=== PATIENT | female | born 1940 | race Caucasian/White ===

== ENCOUNTER 2018-05-14 16:34 | Observation (INO) | payer MEDICARE ==
[2018-05-14 17:57] LABS: #Eosinphils 0.1 thou/uL (0.0-0.7); #Lymphocytes 1.7 thou/uL (1.20-3.40); #Monocytes 0.4 thou/uL (0.11-0.59); #Neutrophils 2.2 thou/uL (1.40-6.50); %Basophils 0.6 % (0.0-1.0); %Eosinophils 1.9 % (0.0-10.0); %Lymphocytes 38.5 % (21.0-51.0); %Monocytes 9.4 % (0.0-10.0); %Neutrophils 49.7 % (42.0-75.0); Hemoglobin 6.4 g/dL (12.0-16.0); Mean Corpuscular HGB CONC 34.1 g/dL (32.0-36.0); Mean Corpuscular Hemoglobin 30.4 pg (27.0-31.0); Mean Corpuscular Volume 89.2 fL (78.0-98.0); Mean Platelet Volume 7.7 fL (7.4-10.4); Platelet Count 251 thou/uL (130-400); RBC Distribution Width 15.9 % (11.5-14.5); Red Blood Cell (RBC) Count 2.09 mill/uL (4.20-5.40); White Blood Cell (WBC) Count 4.4 thou/uL (4.8-10.8)
[2018-05-14 18:19] LABS: ALT (SGPT) 24 U/L (8-55); AST (SGOT) 59 U/L (5-34); Albumin 3.1 g/dL (3.4-4.8); Alkaline Phosphatase 104 U/L (40-150); Anion Gap 13 mmol/L (10-20); BUN (Urea Nitrogen) 23 mg/dL (9.8-20.1); Bilirubin, Total 3.2 mg/dL (0.2-1.2); Calc. Creatinine Clearance 0 mL/min (70-130); Calcium 8.4 mg/dL (7.8-10.44); Carbon Dioxide 28 mmol/L (23-31); Chloride 102 mmol/L (98-107); Estimated GFR-MDRD 52; Globulin 3.2 g/dL (2.4-3.5); Glucose 134 mg/dL (83-110); Protein, Total 6.3 g/dL (6.0-8.3); Sodium 140 mmol/L (136-145)
[2018-05-14] MEDS ORDERED: Acetaminophen 650 MG Suppository PR PRN (20:13)
[2018-05-14] MEDS ORDERED: Acetaminophen 325 MG TAB PO PRN (20:13)
--- NOTE | 2018-05-14 20:46 | RAD ---
FRadiograph chest 2 views: 05/14/2018 HISTORY: 77-year-old female with dyspnea and anemia. COMPARISON: None available FINDINGS: There is a left pleural effusion occupying approximately 20% volume of the left hemithoracic cavity, with associated consolidation of underlying base of left lower lobe. There is a smaller right pleural effusion. Cardiac size is either enlarged or at upper limits of normal. Mild pulmonary venous congestion. No pn eumothorax. IMPRESSION: 1. Bilateral pleural effusions, left greater than right. 2. Underlying consolidation at base of left lower lobe, either atelectasis or pneumonia. 3. Possible mild congestive heart failure.
[2018-05-14] MEDS ORDERED: Famotidine 20 MG TAB PO SCH (21:00)
--- NOTE | 2018-05-14 21:31 | HP ---
CHIEF COMPLAINT: Weakness. HISTORY OF PRESENT ILLNESS: Ms. Saldaña is a pleasant 77-year-old woman, who is currently admitted to [facility] due to weakness associated with chronic anemia since March 2018, who presents today due to a low hemoglobin today of 6.4 and had a hemoglobin of 8.1 last night. The patient is under the care of Dr. Clinton, supervisor maintenance, and her primary care physician is Dr. Tavarez in [place]. She has been undergoing workup and investigations including colonoscopy and upper endoscopy, both done in March, all of which have been unremarkable. She was most recently placed on steroids. The patient has a followup with Dr. Clinton on Wednesday and states has not yet been determined what is causing her anemia. Of note, the patient was recently diagnosed with a left lower extremity DVT and states due to low hemoglobin, she was not placed on any anticoagulation. She has not been diagnosed with any pulmonary embolus that she is aware of and denies undergoing any procedure such as IVC filter placement. The patient had undergone laboratory studies in the ED and transfusion of 1 unit of packed red blood cells has been requested by Dr. Cervantes. Per the patient, it has not yet been given, but nurse has gone up to medicinal plant picker the unit of blood. REVIEW OF SYSTEMS: The patient states she feels generally fatigued and this has been persisting since March and has had no significant improvement despite being in rehab. She also reports lower leg swelling bilaterally. The patient reports noting bilateral lower extremity edema. She states she does have shortness of breath at baseline, associated with her generalized weakness and fatigue. She denies having any shortness of breath at rest or denies any chest pain. Has not had any fevers, chills, or sweats. No cough or hemoptysis. Denies any abdominal pain or cramping. She has been moving her bowels as normal without any diarrhea or constipation. She has not noted any black-colored stools or bright red blood per rectum, has not noted any hematuria. Denies any dysuria or urinary frequency. Has not experienced any hematemesis. No nausea or vomiting. She reports having a good appetite and denies any weight loss. No headaches or dizziness. The patient denies having any vaginal bleeding or discharge. All other review of systems is negative. PAST MEDICAL HISTORY: 1. Hypertension. 2. Left lower leg DVT. 3. Chronic anemia. 4. Diastolic CHF. 5. GERD without esophagitis. 6. Allergic rhinitis. 7. Hyperbilirubinemia. 8. Generalized weakness. PAST SURGICAL HISTORY: 1. Cholecystectomy with biliary stent placed, due to be removed. 2. Cataract surgery. 3. Appendectomy. 4. Hysterectomy. SOCIAL HISTORY: The patient denies any alcohol use or smoking history. No illicit drug use. ALLERGIES: NO KNOWN DRUG ALLERGIES. CURRENT MEDICATIONS: 1. Cholecalciferol. 2. Flonase. 3. Furosemide. 4. Lisinopril. 5. Metoprolol. 6. Pantoprazole. PHYSICAL EXAMINATION: GENERAL: The patient appears fatigued, generally unwell, very thin and frail. HEENT: Normocephalic and atraumatic. Pupils are equal, round, and reactive to light. Sclerae notable for slight icterus. Oropharynx is clear. NECK: Supple. LUNGS: Clear to auscultation bilaterally without any wheezes, rales, or rhonchi. She did have reduced breath sounds at the bilateral bases. CARDIAC: Regular rate and rhythm. ABDOMEN: Soft, mildly distended, and nontender. No guarding or rigidity. No renal angle tenderness. EXTREMITIES: Notable for +1 pitting edema bilaterally from the feet to the midcalf. NEUROLOGIC: Alert and oriented x3. SKIN: Notable for jaundice. No rash. No pruritus. LABORATORY DATA: White blood count 4.4, hemoglobin 6.4, hematocrit 18.7, and platelets 251. Sodium 140; potassium 3.0; BUN 23; creatinine 1.03; GFR 52, up from previous lab done 1 week ago when it was 47; glucose 134, calcium 8.4; total bilirubin 3.2; AST 59; ALT 24; alkaline phosphatase 104; albumin 3.1; globulin 3.2. IMAGING DATA: None. IMPRESSION AND PLAN: Ms. Saldaña is a very pleasant 77-year-old woman, who is being admitted for management of the followin. Anemia. The patient has been undergoing investigations with Dr. Clinton, supervisor maintenance, since March 2018 with unclear reason for the persisting anemia as per the patient and her . She has had no signs or symptoms of bleeding. She underwent upper and lower endoscopies in March, both of which were unremarkable. We will check the stool for occult blood. Her hemoglobin last night was 8 and dropped suddenly by 2 points. We will continue to monitor H and H and transfuse further if necessary. We will discuss with attending if hematology consult is needed. The patient does have an appointment with Dr. Clinton on Wednesday. 2. Shortness of breath. Potentially associated with symptomatic anemia. However, the patient does have a history of congestive heart failure and bilateral pitting edema. We will check her BNP and obtain a chest x-ray. The patient states she has never undergone an echo. Echo to be done, pending results of chest x-ray and BNP. Otherwise, Day Team to decide if indicated. 3. Hyperbilirubinemia. The patient has a total bilirubin of 3.2. She had undergone a cholecystectomy with biliary stent still in situ. According to the patient, she is awaiting removal. AST 59, ALT 24. We will check coags. Direct bilirubin ordered. We will discuss with attending if liver ultrasound is indicated; however, the patient is asymptomatic without any abdominal pain. We will add on lipase as well. 4. Hypertension. Resume home medications and monitor blood pressure. 5. Gastrointestinal prophylaxis. 6. Deep venous thrombosis prophylaxis. Hold given low HB. The patient has been recently diagnosed with a left lower extremity deep venous thrombosis. At present, it appears no measures have been taken to prevent a pulmonary embolism as such as IVC filter placement. She has remained off anticoagulation. The patient states this is due to her persistently low HB. 7. Full code status. Her surrogate decision maker is her , Jefferson Saldaña. The patient's case to be discussed with Dr. Espinoza for further input and recommendations. Job ID: [id number]
[2018-05-14 23:32] VITALS: BMI 22.3
[2018-05-15 07:00] LABS: #Eosinphils 0.1 thou/uL (0.0-0.7); #Lymphocytes 1.7 thou/uL (1.20-3.40); #Monocytes 0.4 thou/uL (0.11-0.59); #Neutrophils 1.7 thou/uL (1.40-6.50); %Basophils 0.2 % (0.0-1.0); %Eosinophils 3.6 % (0.0-10.0); %Lymphocytes 42.8 % (21.0-51.0); %Monocytes 10.2 % (0.0-10.0); %Neutrophils 43.2 % (42.0-75.0); Hemoglobin 6.6 g/dL (12.0-16.0); Mean Corpuscular HGB CONC 34.6 g/dL (32.0-36.0); Mean Corpuscular Hemoglobin 30.4 pg (27.0-31.0); Mean Platelet Volume 7.7 fL (7.4-10.4); Platelet Count 201 thou/uL (130-400); RBC Distribution Width 15.6 % (11.5-14.5); Red Blood Cell (RBC) Count 2.17 mill/uL (4.20-5.40); White Blood Cell (WBC) Count 3.9 thou/uL (4.8-10.8)
[2018-05-15 07:17] LABS: Anion Gap 10 mmol/L (10-20); BUN (Urea Nitrogen) 19 mg/dL (9.8-20.1); Calc. Creatinine Clearance 45 mL/min (70-130); Calcium 8.3 mg/dL (7.8-10.44); Carbon Dioxide 30 mmol/L (23-31); Chloride 105 mmol/L (98-107); Estimated GFR-MDRD 65; Glucose 110 mg/dL (83-110); Potassium 3.1 mmol/L (3.5-5.1); Sodium 142 mmol/L (136-145)
[2018-05-15] MEDS: Furosemide 40 MG TAB PO SCH (08:10)
[2018-05-15] MEDS: Lisinopril 20 MG TAB PO SCH (08:10)
[2018-05-15] MEDS ORDERED: predniSONE 20 MG TAB SCH (11:15)
[2018-05-15] MEDS ORDERED: predniSONE 20 MG TAB PO SCH (12:00)
--- NOTE | 2018-05-15 17:20 | PDOC.PN ---
- Subjective Encounter Start Date: 05/15/18 Encounter Start Time: 17:18 Patient lying in bed with at bedside. She reports feeling better today, but still with some mild shortness of breath. Dr Clinton ordered 2 additional units of blood. She denies chest pain, palpitations or abdominal pain. - Objective Resuscitation Status - Order Detail: 05/14/18 20:13 Resuscitation Status Routine Co-Sign Provider: Resuscitation Status: FULL: Full Resuscitation Discussed with: Patient and MAR Reviewed: Yes Vital Signs & Weight: Vital Signs (12 hours) Temp Pulse Resp BP Pulse Ox 05/15/18 08:00 98.0 F 81 16 163/80 H 96 Weight Weight 118 lb I&O: 05/14/18 05/15/18 05/16/18 06:59 06:59 06:59 Intake Total 320 1035 Balance 320 1035 Result Diagrams: 05/15/18 06:41 05/15/18 06:41 Radiology Reviewed by me: Yes Phys Exam - Physical Examination Constitutional: NAD HEENT: moist MMs, oral pharynx no lesions Neck: no nodes, supple Respiratory: no wheezing, clear to auscultation bilateral Cardiovascular: RRR, no significant murmur Gastrointestinal: soft, positive bowel sounds Musculoskeletal: pulses present Trace edema Neurological: non-focal, moves all 4 limbs Psychiatric: normal affect, A&O x 3 Skin: no rash, cap refill <2 seconds Dx/Plan (1) Acute on chronic anemia Code(s): D64.9 - ANEMIA, UNSPECIFIED Status: Acute (2) CHF (congestive heart failure) Code(s): I50.9 - HEART FAILURE, UNSPECIFIED Status: Acute (3) HTN (hypertension) Code(s): I10 - ESSENTIAL (PRIMARY) HYPERTENSION Status: Acute (4) DVT (deep venous thrombosis) Code(s): I82.409 - ACUTE EMBOLISM AND THOMBOS UNSP DEEP VN UNSP LOWER EXTREMITY Status: Acute (5) GERD (gastroesophageal reflux disease) Code(s): K21.9 - GASTRO-ESOPHAGEAL REFLUX DISEASE WITHOUT ESOPHAGITIS Status: Acute - Plan cont current plan of care, plan discussed w/ family, PT/OT * Continue blood transfusions and monitor H&H * Check CBC in am * Order PT/OT due to patient weakness and she requesting home health * Will consult case management in am * Dr Clinton added prednisone, continue as directed * Due to patient SOB and hx of dialstolic CHF will check echo * Patient with hx of DVT, hold anticoagulation due to anemia
--- NOTE | 2018-05-15 18:46 | CON ---
DATE OF CONSULTATION: 05/15/2018 REASON FOR CONSULTATION: Anemia. HISTORY OF PRESENT ILLNESS: The patient is a 77-year-old woman, whose present illness begins in March, when she developed jaundice and severe weakness and was ultimately transferred to a hospital in [place], [place], for further evaluation on April 04. Laboratories taken at that time showed a normal white blood cell count and platelet count with hemoglobin 8.5 and MCV 81.4. Chemistry showed an albumin of 2.6 and total bilirubin of 12. AST and ALT were minimally elevated. The lipase was 416. A stool for guaiac was positive, but there was no evidence of over thinking. The patient then underwent upper and lower gastrointestinal endoscopy and an ERCP. Upper and lower endoscopies showed no significant findings. The ERCP did show cholelithiasis, choledocholithiasis, and common bile duct stenosis associated with dilated common bile duct and pancreatic duct. A stent was placed and a cholecystectomy was performed. She was transfused and proved significantly. She was then discharged with plans to repeat ERCP in 1 month. She was admitted again to [facility] in [place] on April 17 for a 2-unit red cell transfusion associated with a hemoglobin of 5.8. She was then admitted again about 2 weeks later on May 03 for hemoglobin of 5.6, again requiring red cell transfusion. The bilirubin had improved significantly to 2.9. A posttransfusion hemoglobin was 8.3 on May 04. She was seen in my office on May 06 and the hemoglobin was 9.5. The kidney function was normal. The total bilirubin was 3.0 with a direct bilirubin of 1.4 suggesting hepatobiliary disease and not hemolysis. The marked improvement in bilirubin also suggested that the source of the hyperbilirubinemia was primarily hepatic. However, the LDH was quite elevated at 185 suggesting hemolysis, but the reticulocyte count was negligible at 1.2. The Roman direct was negative. The decision at that time was made to follow her with weakly blood count, but she was now admitted for persistent and progressive weakness associated with a hemoglobin of 6.6. She was admitted for transfusion. I am asked to see the patient to provide further management or recommendations. ALLERGIES: SHE HAS NO KNOWN DRUG ALLERGIES. MEDICATIONS: 1. Metoprolol. 2. Vitamin D3. 3. Flonase. 4. Lasix. 5. Lisinopril. 6. Protonix. PAST MEDICAL HISTORY: Medical illness; 1. Hypertension. 2. Congestive heart failure. 3. Anemia. 4. History of distal left lower extremity DVT in March after which she has been observed without further symptoms as anticoagulation was felt to be contraindicated as there was concern for gastrointestinal bleeding. 5. Esophageal stricture. 6. Colon polyps. 7. Cholelithiasis and choledocholithiasis. PAST SURGICAL HISTORY: Cholecystectomy in [place] in March 2018. PERSONAL HISTORY: The patient is and has 3 children. She lives with her spouse. Many number of children are involved. She is a former smoker, but has not smoked for many years. She did not drink alcohol. 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 REVIEW OF SYSTEMS: Except as mentioned in history of present illness, she denies significant cardiopulmonary, GI, , musculoskeletal, or neurological complaints. PHYSICAL EXAMINATION: VITAL SIGNS: Temperature 98.5, pulse 65 and regular, respirations 16, blood pressure 158/73, and O2 saturation 95% on room air. GENERAL: The patient is a well-developed and well-nourished, but clinically ill-appearing woman in no acute distress. She is alert, oriented, and cooperative. She is appropriate in conversation. HEENT: The extraocular movements are intact. Pupils are equal, round, and reactive to light. NECK: Supple. LUNGS: Clear. CARDIOVASCULAR: Regular rate and rhythm without murmur, rub, gallop, or click. ABDOMEN: No tenderness, organomegaly, masses, bruits, or ascites. EXTREMITIES: No clubbing, cyanosis, or edema. SKIN: Normal. LYMPHATICS: No adenopathy. MUSCULOSKELETAL: No active arthritis. NEUROLOGIC: No focal findings and the cranial nerves 2 through 12 are grossly intact. LABORATORY DATA: The CBC on May 15, shows a white blood cell count 3.9 with normal differential, hemoglobin 6.6 after a single unit of transfusion, MCV 88.0, RDW 15.6%, and platelet count 201,000. Chemistry showed a normal electrolytes for a potassium of 3.1. The creatinine is 0.85. The total bilirubin is 3.2 and direct bilirubin elevated at 1.3. AST 59 and ALT 24. Albumin 3.1. I did discuss the transfusion workup with the blood bank and there continuous to be no difficulty in cross matching the patient. IMPRESSION: 1. Cholelithiasis, choledocholithiasis, common bile duct stricture, which was benign, status post endoscopic retrograde cholangiopancreatography and stent placement, esophagogastroduodenoscopy, colonoscopy, and cholecystectomy in March 2018. 2. Recurrent, rapid onset anemia since March 2018, requiring repetitive transfusion with no definite evidence of bleeding. The major concern is hemolysis despite a negligible retic count and negative direct Roman. RECOMMENDATIONS: The patient will be transfused with 2 additional units of packed red blood cells. She will be initiated on empiric steroids at 1 mg/kg/day. She can be discharged subsequent to transfusion and will follow up weekly in my office. Thanks very much for allowing me to provide more recommendations. Job ID: [id number]
[2018-05-15] MEDS: predniSONE 20 MG TAB PO SCH (20:13)
[2018-05-15] MEDS ORDERED: Famotidine 20 MG TAB PO SCH (21:00)
[2018-05-16 06:58] LABS: Hemoglobin 8.7 g/dL (12.0-16.0)
[2018-05-16] MEDS: predniSONE 20 MG TAB PO SCH (08:39)
[2018-05-16] MEDS: Lisinopril 20 MG TAB PO SCH (08:40)
[2018-05-16] MEDS: Furosemide 40 MG TAB PO SCH (08:42)
[2018-05-16 17:09] VITALS: BP 155/68; TEMP 98.4
--- NOTE | 2018-05-17 06:46 | DIS ---
DATE OF ADMISSION: 05/14/2018 DATE OF DISCHARGE: 05/16/2018 ALLERGIES: NO KNOWN DRUG ALLERGIES. CHIEF COMPLAINT: Weakness. FINAL DIAGNOSES: 1. Chronic symptomatic anemia, hemoglobin 6.4 on admission, status post PRBC transfusion. Hemoglobin 8.7 at discharge, followed by Dr. Clinton. 2. Recent cholecystectomy, endoscopic retrograde cholangiopancreatography and biliary stent placement in [place] with Dr. Hein. 3. Hyperbilirubinemia, trending down. 4. History of left lower extremity deep venous thrombosis, not a candidate for anticoagulation secondary to anemia, recently diagnosed during recent hospitalization in March 2018, in [place], where her above cholecystectomy and ERCP was performed. PROCEDURES PERFORMED: None. LABORATORY DATA: Hemoglobin 8.7, hematocrit 25.3, platelets 201. Sodium 142, potassium 3.1, chloride 105, carbon dioxide 30, anion gap 10, BUN 19, creatinine 0.85, GFR 65, glucose 110, calcium 8.3, total bilirubin 3.2, direct bilirubin 1.3, AST 59, ALT 24, alkaline phosphatase 104, BNP 702. IMAGING RESULTS: 1. Chest x-ray shows bilateral pleural effusions, left approximately 20% volume of the left hemothorax cavity, right smaller than left. 2. Underlying consolidation at base of left lower lobe. 3. Possible mild congestive heart failure. 4. Echocardiogram, trivial pericardial effusion, left pleural effusion noted. EF is 50% to 55%, moderate MR, [id number] TR, sclerotic aortic valve without stenosis. CONSULTATIONS: Dr. Clinton. PHYSICAL EXAMINATION: VITAL SIGNS: Blood pressure 155/68, pulse is 63, respirations 16, O2 saturation is 95%. HOSPITAL COURSE: The patient is a 77-year-old female with past medical history is significant for symptomatic anemia and recent hospitalization in [place] in March of 2018, where she presented with jaundice and severe weakness. At the time of that admission, her total bilirubin was 12 and her AST and ALT were minimally elevated, lipase was 416. Stool for guaiac was positive, but there was no evidence for bleeding and upper and lower GI were negative at that time. The patient underwent successful biliary stent placement along with cholecystectomy, and was just discharged to [facility] for rehab. She over the course of the last month had been admitted in [facility] on several occasions for anemia requiring transfusion, and has been followed closely by Dr. Clinton. The patient presented to the hospital with similar symptoms of weakness and certainly, on admission, her hemoglobin was low once again at 6.4. The patient was transfused 2 units of PRBC with good response in her hemoglobin. The patient has no shortness of breath at this time. She has no lower extremity swelling. She has ambulated around the room and feels back to her baseline. She was seen in consultation with Dr. Clinton who recommended 1 mg/kg of empiric steroids, and follow up with in his office in the week. The patient is also scheduled to see her surgeon in [place] regarding biliary stent removal on Wednesday. There was some concern for heart failure given the patient's BNP, however, this morning the patient has no lower extremity swelling, no shortness of breath. No crackles noted, and EF was normal. PHYSICAL EXAMINATION: GENERAL: She is awake and alert. No acute distress. Resting comfortably in bed. HEENT: Atraumatic and normocephalic. Eye movements are intact. NECK: Supple. No lymphadenopathy. No JVD. RESPIRATORY: Regular respiratory rate and pattern, overall clear to auscultation bilaterally. I hear no rhonchi, wheezes, or crackles, minimally diminished breath sounds at the bases. CV: S1 and S2. Regular rhythm. Soft systolic murmur, grade 1/6. GASTROINTESTINAL: Soft, nontender, normal bowel sounds. Peripheral vascular, no lower extremity pitting edema. Palpable pulses bilaterally. MUSCULOSKELETAL: No joint effusion or swelling. SKIN: Warm and dry. No rashes. NEUROLOGIC: Cranial nerves 2 through 12 are intact. The patient nonfocal. CONDITION AT DISCHARGE: Stable. DISCHARGE MEDICATIONS: The patient will continue her home medications, which include: Furosemide 40 mg p.o. daily. Flovent Diskus 1 spray nasal b.i.d. Vitamin D3 supplement 5000 units 1 tablet p.o. Q 7 days. Lisinopril 20 mg tabs 1 tablet p.o. daily. Metoprolol succinate 25 mg tablet 1 tablet p.o. b.i.d. Pantoprazole 40 mg tablet 1 tablet p.o. daily. NEW MEDICATION: 1. Prednisone 40 mg tablet 1 tablet p.o. q.a.m. and 20 mg tab q.p.m. per Dr. Clinton. 2. I will also send her prescription for potassium supplement to go along with her Lasix 10 mEq tab one tablet p.o. daily. DISCHARGE DISPOSITION: Home. PLAN: The patient will maintain close followup regarding management of her anemia with Dr. Clinton. He has recommended weekly visits in his office. The patient shows no signs of overt heart failure at this time, and her EF is normal. Her pleural effusions are of indeterminate significance at this time as they are asymptomatic. Given her mild valvular disease, we will recommend outpatient followup with Cardiology as well. She will have a followup with her surgeon in [place] on Wednesday. Care discussed with Dr. Chadwick who agrees with the above. Job ID: [id number]
== END 2018-05-16 18:45 | disposition home or self-care (01) ==
LOC: ERS 16:34 → T4-A 21:41
PROVIDERS: ADMIT Internal Medicine; ATTEND Internal Medicine
DX: D64.9 Anemia, unspecified (principal); E80.6 Other disorders of bilirubin metabolism; I11.0 Hypertensive heart disease with heart failure; I50.30 Unspecified diastolic (congestive) heart failure; K21.9 Gastro-esophageal reflux disease without esophagitis; R53.1 Weakness; J30.9 Allergic rhinitis, unspecified; R06.02 Shortness of breath; Z86.010 Personal history of colon polyps; Z87.891 Personal history of nicotine dependence; Z86.718 Personal history of other venous thrombosis and embolism; Z79.51 Long term (current) use of inhaled steroids; Z79.899 Other long term (current) drug therapy
CPT/HCPCS: 36430 ×2; 71046; 80048; 80053; 82248; 82550; 83880; 85014; 85018; 85025 ×2; 86850; 86900; 86901; 86920; 93005; 93306; 97139 ×2; 99291; G0378 ×2; P9016 ×2; 36415

== ENCOUNTER 2018-12-03 11:20 | Day surgery (SDC) | payer MEDICARE ==
[2018-12-03] MEDS ORDERED: diphenhydrAMINE 25 MG CAP PO SCH (11:45)
[2018-12-03] MEDS ORDERED: Acetaminophen 500 MG TAB PO SCH (11:45)
[2018-12-03 15:37] VITALS: BP 148/66; TEMP 98.6
[2018-12-03 17:23] LABS: #Eosinphils 0.1 thou/uL (0.0-0.7); #Lymphocytes 1.8 thou/uL (1.20-3.40); #Monocytes 0.4 thou/uL (0.11-0.59); #Neutrophils 1.5 thou/uL (1.40-6.50); %Basophils 0.7 % (0.0-1.0); %Eosinophils 1.8 % (0.0-10.0); %Lymphocytes 47.8 % (21.0-51.0); %Monocytes 9.9 % (0.0-10.0); %Neutrophils 39.9 % (42.0-75.0); Hemoglobin 9.9 g/dL (12.0-16.0); Mean Corpuscular Hemoglobin 31.4 pg (27.0-31.0); Mean Corpuscular Volume 89.6 fL (78.0-98.0); Mean Platelet Volume 7.5 fL (7.4-10.4); Platelet Count 168 thou/uL (130-400); RBC Distribution Width 16.8 % (11.5-14.5); Red Blood Cell (RBC) Count 3.16 mill/uL (4.20-5.40); White Blood Cell (WBC) Count 3.7 thou/uL (4.8-10.8)
== END 2018-12-03 17:25 | disposition home or self-care (01) ==
LOC: SURG B 11:20 → SDC/OP 11:20
PROVIDERS: ATTEND Internal Medicine Hematology & Oncology
PROC: 30233N1 Transfusion of Nonautologous Red Blood Cells into Peripheral Vein, Percutaneous Approach (ICD-10-PCS; principal; 2018-12-03)
DX: D64.9 Anemia, unspecified (principal); D69.6 Thrombocytopenia, unspecified; Z79.51 Long term (current) use of inhaled steroids; Z79.84 Long term (current) use of oral hypoglycemic drugs; Z79.899 Other long term (current) drug therapy
CPT/HCPCS: 36430; 85025; 86850 ×2; 86870; 86900; 86901; 86920; 86922; P9016; 36415; Q0163

== ENCOUNTER 2018-12-22 11:27 | Day surgery (SDC) | payer MEDICARE ==
[2018-12-22] MEDS ORDERED: Acetaminophen 500 MG TAB PO SCH (13:15)
[2018-12-22] MEDS ORDERED: diphenhydrAMINE 25 MG CAP PO SCH (13:15)
[2018-12-22 19:50] VITALS: BP 154/69; TEMP 99.1
== END 2018-12-22 20:00 | disposition home or self-care (01) ==
LOC: SDC 11:27 → UNDODISOB 20:00 → SDC 20:00 → EDSTATUS 12-26 07:28
PROVIDERS: ATTEND Internal Medicine Hematology & Oncology
PROC: 30233N1 Transfusion of Nonautologous Red Blood Cells into Peripheral Vein, Percutaneous Approach (ICD-10-PCS; principal; 2018-12-22)
DX: D64.9 Anemia, unspecified (principal); D69.6 Thrombocytopenia, unspecified
CPT/HCPCS: 36430; 86850 ×2; 86870; 86900; 86901; 86920; 86922; P9016; Q0163

== ENCOUNTER 2019-01-19 11:01 | Day surgery (SDC) | payer MEDICARE, OTHER ==
[2019-01-19] MEDS ORDERED: diphenhydrAMINE 25 MG CAP PO SCH (15:45)
[2019-01-19] MEDS ORDERED: Acetaminophen 500 MG TAB PO SCH (15:45)
[2019-01-19 16:43] VITALS: TEMP 99
[2019-01-19 17:23] VITALS: BP 161/71
== END 2019-01-19 17:25 | disposition home or self-care (01) ==
LOC: ONC/OP 11:01
PROVIDERS: ATTEND Internal Medicine Hematology & Oncology
PROC: 30233N1 Transfusion of Nonautologous Red Blood Cells into Peripheral Vein, Percutaneous Approach (ICD-10-PCS; principal; 2019-01-19)
DX: D64.9 Anemia, unspecified (principal); D69.6 Thrombocytopenia, unspecified
CPT/HCPCS: 36430; 86850; 86900; 86901; 86922; P9016